=== PATIENT | male | born 1975 ===

== ENCOUNTER 2024-06-02 04:40 | Day surgery (SDC) | payer OTHER ==
[2024-06-01 17:47] VITALS: BMI 21.7
[2024-06-02] MEDS ORDERED: LIDOCAINE HCL 1%, 10 MG/ML (20ML VIAL) ONE (07:22)
[2024-06-02] MEDS ORDERED: HEPARIN NA (PORCINE) 5,000 UNITS/ML 1ML VIAL ONE (07:23)
[2024-06-02] MEDS ORDERED: MIDAZOLAM HCL 2 MG/2 ML SINGLE DOSE VIAL ONE (11:21)
[2024-06-02] MEDS ORDERED: PROPOFOL 20 ML ONE (11:21)
[2024-06-02] MEDS ORDERED: LIDOCAINE HCL/PF 2% SDV 5ML VIAL ONE (11:29)
[2024-06-02] MEDS: LIDOCAINE HCL 1%, 10 MG/ML (20ML VIAL) NR ONE ×2 (11:33)
[2024-06-02] MEDS: ceFAZolin SODIUM 1 GM VIAL IVPB ONE (11:45)
[2024-06-02] MEDS ORDERED: ONDANSETRON 4 MG/2 ML VIAL IVPUSH PRN (12:05)
[2024-06-02] MEDS ORDERED: SODIUM CHLORIDE 1,000 ML IV SCH (12:15)
[2024-06-02 12:59] VITALS: TEMP 97.7
[2024-06-02 14:51] VITALS: BP 142/88; PULSE 60; RESP 18
== END 2024-06-02 13:50 | disposition home or self-care (01) ==
LOC: JASU-SURG 04:40
PROVIDERS: ATTEND Surgery
PROC: 05H Upper Veins, Insertion (ICD-10-PCS; 2024-06-02)
PROC: 05H Upper Veins, Insertion (ICD-10-PCS; 2024-06-02)
PROC: 057Y3DZ Dilation of Upper Vein with Intraluminal Device, Percutaneous Approach (ICD-10-PCS; principal; 2024-06-02 09:00)
DX: T82.898A Other specified complication of vascular prosthetic devices, implants and grafts, initial encounter (principal); I12.0 Hypertensive chronic kidney disease with stage 5 chronic kidney disease or end stage renal disease; N18.6 End stage renal disease; Z99.2 Dependence on renal dialysis; T82.590A Other mechanical complication of surgically created arteriovenous fistula, initial encounter; Y82.8 Other medical devices associated with adverse incidents; Y92.89 Other specified places as the place of occurrence of the external cause
CPT/HCPCS: 36903; 36908; C1877; 36415; 76000-TC-FY; 94760; C1874; J1644

== ENCOUNTER 2024-09-21 11:17 | Inpatient (IN) | payer OTHER ==
[2024-09-21] MEDS ORDERED: VANCOMYCIN 1 GM PREMIX (F) 1 GM/200 ML BAG ONE (13:12)
[2024-09-21 13:22] LABS: HEMATOCRIT 22.3 % (35.4-49); HEMOGLOBIN 7.1 GM/dL (11.7-16.9); LYMPH % 5.6 % (8-40); MCH 26.8 pg (25.7-33.7); MCHC 31.7 g/dl (32.0-35.9); MEAN CELL VOLUME 84.5 fl (80-96); NEUT % 77.4 % (42.8-82.8); PLATELET COUNT 182 10^3/uL (134-434); RBC 2.64 M/mm3 (4.00-5.60); RDW 18.1 % (11.9-15.9); WHITE BLOOD COUNT 6.3 K/mm3 (4.0-10.0)
[2024-09-21] MEDS: VANCOMYCIN 1,000 MG in DEXTROSE 5%-WATER - 250 ML IVPB ONE (13:22)
[2024-09-21 13:28] LABS: INR 1.27 (0.83-1.09); PROTHROMBIN TIME (PATIENT) 13.8 SEC (9.7-13.0)
[2024-09-21 13:31] LABS: ACTIVATED PTT 29.5 SECONDS (25.2-36.5)
[2024-09-21 13:46] LABS: CHLORIDE 95 mmol/L (98-107); POTASSIUM 4.9 mmol/L (3.5-5.1); SODIUM 133 mmol/L (136-145)
[2024-09-21 13:48] LABS: ALBUMIN 3.4 g/dl (3.4-5.0); ANION GAP 14 mmol/L (4-13); BLOOD UREA NITROGEN 72.5 mg/dL (7-18); CALCIUM 8.9 mg/dL (8.5-10.1); CO2 24 mmol/L (21-32); GLUCOSE,RANDOM 120 mg/dL (74-106)
[2024-09-21 13:51] LABS: SGOT/AST 26 U/L (15-37); SGPT/ALT 8 U/L (13-61)
[2024-09-21 13:53] LABS: BILIRUBIN,TOTAL 0.4 mg/dL (0.2-1); TOT PROT 7.2 g/dl (6.4-8.2)
[2024-09-21 13:54] LABS: ALK PHOS 131 U/L (45-117)
[2024-09-21 13:58] LABS: CREATININE 9.7 mg/dL (0.55-1.3)
[2024-09-21] MEDS ORDERED: LIDOCAINE HCL 1%, 10 MG/ML (20ML VIAL) ONE (14:48)
[2024-09-21] MEDS ORDERED: HEPARIN NA (PORCINE) 5,000 UNITS/ML 1ML VIAL ONE (14:48)
[2024-09-21 14:49] LABS: HCV DIAGNOSTIC IN-HOUSE W/RFLX NON-REACTIVE (NONREACTIVE); HIV INTERPRETATION NEGATIVE (NEGATIVE)
[2024-09-21] MEDS ORDERED: PROPOFOL 20 ML ONE (15:03)
[2024-09-21] MEDS ORDERED: MIDAZOLAM HCL 2 MG/2 ML SINGLE DOSE VIAL ONE (15:03)
[2024-09-21] MEDS ORDERED: ONDANSETRON 4 MG/2 ML VIAL ONE (15:33)
[2024-09-21] MEDS ORDERED: DEXAMETHASONE SOD PHOSPHATE 4 MG/1 ML VIAL ONE (15:33)
[2024-09-21] MEDS: LIDOCAINE HCL 1%, 10 MG/ML (20ML VIAL) NR ONE (15:43)
[2024-09-21] MEDS: SODIUM CHLORIDE 1,000 ML IV SCH (16:11)
[2024-09-21] MEDS ORDERED: ONDANSETRON 4 MG/2 ML VIAL IVPUSH PRN (16:22)
[2024-09-21] MEDS ORDERED: hydrALAZINE HCL 20 MG/ML VIAL ONE (19:43)
[2024-09-21] MEDS: hydrALAZINE HCL 20 MG/ML VIAL IVPUSH ONE (19:44)
[2024-09-21] MEDS: cloNIDine HCL 0.1 MG TABLET PO SCH (21:18)
[2024-09-21] MEDS: levETIRAcetam 500 MG TABLET (FP) PO SCH (21:19)
[2024-09-21] MEDS: NIFEdipine E.R 60 MG TABLET PO SCH (21:19)
[2024-09-21] MEDS: CARVEDILOL 25 MG TABLET (FP) PO SCH (21:19)
[2024-09-21] MEDS ORDERED: NIFEdipine E.R 60 MG TABLET PO SCH (22:00)
[2024-09-22] MEDS: oxyCODONE HCL 5 MG TABLET PO PRN (05:31)
[2024-09-22] MEDS: ACETAMINOPHEN 325 MG TABLET (FP) PO PRN (05:32)
[2024-09-22] MEDS ORDERED: levETIRAcetam 500 MG TABLET (FP) PO SCH (10:00)
[2024-09-22] MEDS: PANTOPRAZOLE 40 MG TABLET PO SCH (10:09)
[2024-09-22] MEDS: GABAPENTIN 100 MG CAPSULE PO SCH (10:10)
[2024-09-22] MEDS: hydrALAZINE HCL 50 MG TABLET (FP) PO SCH (10:10)
[2024-09-22 11:30] VITALS: BMI 21.4
[2024-09-22 13:09] LABS: HEMATOCRIT 22.9 % (40.1-51.0); HEMOGLOBIN 7.1 g/dL (13.7-17.5); MEAN CELL VOLUME 87.4 fl (79.0-92.2); MEAN PLT VOLUME 10.3 fl (9.4-12.4); PLATELET COUNT 198 x10^3/uL (163-337); RDW 16.8 % (12.1-15.9)
[2024-09-22 13:32] LABS: HEPATITIS B SURFACE AG MATERN NON-REACTIVE (NONREACTIVE)
[2024-09-22] MEDS: EPOETIN ALFA-EPBX 10,000 UNIT/ML VIAL IVPUSH ONE (14:45)
[2024-09-22 14:57] LABS: CHLORIDE 95 mmol/L (98-107); POTASSIUM 5.6 mmol/L (3.5-5.1); SODIUM 132 mmol/L (136-145)
[2024-09-22 14:59] LABS: ALBUMIN 3.1 g/dl (3.4-5.0); ANION GAP 14 mmol/L (4-13); CO2 23 mmol/L (21-32); GLUCOSE,RANDOM 118 mg/dL (74-106)
[2024-09-22 15:00] LABS: BLOOD UREA NITROGEN 87.5 mg/dL (7-18)
[2024-09-22] MEDS ORDERED: SODIUM CHLORIDE 250 ML IV PRN (15:00)
[2024-09-22 15:02] LABS: SGPT/ALT < 6 U/L (13-61)
[2024-09-22 15:03] LABS: CREATININE 11.2 mg/dL (0.55-1.3); SGOT/AST 9 U/L (15-37)
[2024-09-22 15:04] LABS: BILIRUBIN,TOTAL 0.3 mg/dL (0.2-1); TOT PROT 6.8 g/dl (6.4-8.2)
[2024-09-22 15:05] LABS: ALK PHOS 118 U/L (45-117)
[2024-09-23] MEDS: CARVEDILOL 25 MG TABLET (FP) PO SCH (11:31)
[2024-09-23] MEDS: NIFEdipine E.R 60 MG TABLET PO SCH (11:31)
[2024-09-23] MEDS: hydrALAZINE HCL 50 MG TABLET (FP) PO SCH (11:31)
[2024-09-23] MEDS: HEPARIN NA (PORCINE) 5,000 UNITS/ML 1ML VIAL SQ SCH (21:39)
[2024-09-24] MEDS ORDERED: SODIUM CHLORIDE 250 ML IV PRN (08:19)
[2024-09-24 09:07] LABS: ABSOLUTE IMMATURE GRANULOCYTES 0.01 x10^3/uL (0.0-0.031); BASOPHILS # 0.07 x10^3/uL (0.01-0.08); EOSINOPHIL % 12.8 % (0.8-7.0); EOSINOPHILS # 0.76 x10^3/uL (0.04-0.54); HEMATOCRIT 24.7 % (40.1-51.0); HEMOGLOBIN 7.8 g/dL (13.7-17.5); MCHC 31.6 g/dl (32.3-36.5); MEAN CELL VOLUME 85.8 fl (79.0-92.2); MEAN PLT VOLUME 9.7 fl (9.4-12.4); MONOCYTE # 0.77 x10^3/uL (0.30-0.82); MONOCYTE % 12.9 % (5.3-12.2); PLATELET COUNT 203 x10^3/uL (163-337); RDW 16.3 % (12.1-15.9)
[2024-09-24 09:31] LABS: CHLORIDE 97 mmol/L (98-107); POTASSIUM 4.5 mmol/L (3.5-5.1); SODIUM 136 mmol/L (136-145)
[2024-09-24 09:33] LABS: ANION GAP 11 mmol/L (4-13); CO2 29 mmol/L (21-32)
[2024-09-24 09:34] LABS: ALBUMIN 3.1 g/dl (3.4-5.0); CALCIUM 8.9 mg/dL (8.5-10.1); GLUCOSE,RANDOM 86 mg/dL (74-106)
[2024-09-24 09:37] LABS: BLOOD UREA NITROGEN 53.8 mg/dL (7-18); SGOT/AST 12 U/L (15-37); SGPT/ALT 7 U/L (13-61)
[2024-09-24 09:38] LABS: BILIRUBIN,TOTAL 0.5 mg/dL (0.2-1); TOT PROT 6.9 g/dl (6.4-8.2)
[2024-09-24 09:39] LABS: ALK PHOS 132 U/L (45-117)
[2024-09-24 09:41] LABS: CREATININE 8.6 mg/dL (0.55-1.3)
[2024-09-24] MEDS: HEPARIN NA (PORCINE) 5,000 UNITS/ML 1ML VIAL IVPUSH ONE (11:46)
[2024-09-24] MEDS: EPOETIN ALFA-EPBX 10,000 UNIT/ML VIAL SQ ONE (13:45)
[2024-09-24 14:09] VITALS: PULSE 80
[2024-09-24 15:11] VITALS: BP 177/98; RESP 18; TEMP 98.6
== END 2024-09-24 17:29 | disposition left against medical advice (07) | DRG 252 ==
LOC: JER 11:17 → JASUSAT 16:13 → SUATTDRO 16:13 → J5S 16:19 → JASUSAT 16:19 → J5S 21:05 → OBSVTOIN 09-24 07:27
PROVIDERS: ADMIT Internal Medicine; ATTEND Hospitalist
PROC: 05753ZZ Dilation of Right Subclavian Vein, Percutaneous Approach (ICD-10-PCS; principal; 2024-09-21 17:30)
PROC: 5A1D70Z Performance of Urinary Filtration, Intermittent, Less than 6 Hours Per Day (ICD-10-PCS; 2024-09-22)
PROC: 5A1D70Z Performance of Urinary Filtration, Intermittent, Less than 6 Hours Per Day (ICD-10-PCS; 2024-09-24)
DX: T82.856A Stenosis of peripheral vascular stent, initial encounter (principal); N18.6 End stage renal disease; I82.601 Acute embolism and thrombosis of unspecified veins of right upper extremity; I12.0 Hypertensive chronic kidney disease with stage 5 chronic kidney disease or end stage renal disease; I87.1 Compression of vein; J90 Pleural effusion, not elsewhere classified; J98.11 Atelectasis; Y83.8 Other surgical procedures as the cause of abnormal reaction of the patient, or of later complication, without mention of misadventure at the time of the procedure; D64.9 Anemia, unspecified; I27.22 Pulmonary hypertension due to left heart disease; E87.70 Fluid overload, unspecified; G40.909 Epilepsy, unspecified, not intractable, without status epilepticus; Z99.2 Dependence on renal dialysis
CPT/HCPCS: 36415; 36430; 71045-TC-FY; 71250-TC; 76000-TC-FY; 80053; 85025; 85027; 85610; 85730; 86704; 86707; 86803; 86850; 86900; 86901; 86922; 87040; 87340; 87389; 93005; 93010; 93306-TC; 94760; 94761; 99285-25; G0378; J1644; P9058; Q5106